=== PATIENT | female | born 1965 | race Caucasian/White ===

== ENCOUNTER → 2017-11-15 14:20 | Outpatient (CLI) | payer OTHER, SELFPAY ==
[2017-11-15 15:51] LABS: Thyroid Stimulating Hormone 0.47 uIU/ml (0.358-3.740)
== END ==
PROVIDERS: Visit Provider Internal Medicine Endocrinology, Diabetes & Metabolism
DX: L85.3 Xerosis cutis (principal); E03.9 Hypothyroidism, unspecified; N95.1 Menopausal and female climacteric states
CPT/HCPCS: 36415; 84443

== ENCOUNTER → 2018-06-27 08:35 | Outpatient (CLI) | payer OTHER, SELFPAY ==
[2018-06-27 10:40] LABS: Anion Gap 12.2 mEq/L (5-15); Blood Urea Nitrogen 17 mg/dL (7-18); Calcium 10.1 mg/dL (8.5-10.1); Carbon Dioxide 33 mmol/L (21.0-32.0); Chloride 97 mmol/L (98-107); Creatinine,Serum 0.95 mg/dL (0.55-1.02); Estimated Glomerular Filt Rate 62 ml/min (>60); GFR (African American) 75 ML/MIN (>60); Glucose 97 mg/dL (74-106); Potassium 3.2 mmoL/L (3.5-5.1); Sodium 139 mmol/L (136-145); Thyroid Stimulating Hormone 0.16 uIU/ml (0.358-3.740)
== END ==
PROVIDERS: PCP Family Medicine; Visit Provider Internal Medicine Endocrinology, Diabetes & Metabolism
DX: L85.3 Xerosis cutis (principal); E03.9 Hypothyroidism, unspecified; N95.1 Menopausal and female climacteric states
CPT/HCPCS: 36415; 80048; 84443

== ENCOUNTER → 2018-09-12 09:49 | Outpatient (CLI) | payer OTHER, SELFPAY ==
--- NOTE | 2018-09-12 09:55 | MM_ITS ---
MM Dig screening mamm BI w/CAD CAD Screening COMPARISON: Digital mammograms with CAD 08/12/2017 and 03/10/2016 INDICATION: There is a history of breast cancer in patient's maternal great grandmother and maternal great aunt TECHNIQUE: Standard CC and MLO images were obtained. R2 CAD reviewed. FINDINGS: The breasts are composed primarily of fat with minimal scattered fibroglandular densities throughout each breast. There there are couple benign-appearing calcifications right breast.. There is no suspicious lesion and there are no suspicious microcalcifications. IMPRESSION: A type breast parenchyma with no suspicious lesion seen BI-RADS Category: 2 Benign Finding(s) RECOMMENDED FOLLOW-UP: 1YR - 1 YEAR FOLLOW-UP (A letter has been sent to the patient regarding results of the study.)
== END ==
PROVIDERS: PCP Family Medicine; Visit Provider Obstetrics & Gynecology
DX: Z12.31 Encounter for screening mammogram for malignant neoplasm of breast (principal)
CPT/HCPCS: 77067

== ENCOUNTER → 2018-10-17 08:14 | Outpatient (CLI) | payer OTHER, SELFPAY ==
--- NOTE | 2018-10-17 | CT_ITS ---
CT angio neck INDICATION: Headache, splenic artery and renal artery aneurysm ITS.REASON: R/O ANEURYSM ORDERING PHYSICIAN: Denys Gupta MD PATIENT AGE: 53 years COMPARISON: None TECHNIQUE: Axial images are obtained following the bolus administration of 25 mL's of Optiray 320 contrast. Sagittal and coronal reformatted images are reviewed as well. All CT scans at the facility use one or more dose reduction, viz: automated exposure control, ma/kV adjustment per patient size (including targeted exams where dose is matched to indication, i.e. head), or iterative reconstruction technique. FINDINGS: The aortic arch has an unremarkable appearance. No anatomic variants are evident of the great vessels. No stenotic lesions or significant plaque is evident. There are patent bilateral vertebral arteries. Common carotids have an unremarkable appearance. Internal carotid arteries are unremarkable without evidence of stenosis, ulceration, or aneurysm. Nonvascular findings: There is evidence of old granulomatous disease with calcified nodes in the mediastinum. IMPRESSION: Negative CT angiogram of the aortic arch and neck
--- NOTE | 2018-10-17 | CT_ITS ---
CT angio head INDICATION: Headache, splenic artery and renal artery aneurysm ORDERING PHYSICIAN: Denys Gupta MD PATIENT AGE: 53 years COMPARISON: None TECHNIQUE: Axial images are obtained with [employer] 320. Sagittal and coronal reformatted images are reviewed as well. All CT scans at the facility use one or more dose reduction, viz: automated exposure control, ma/kV adjustment per patient size (including targeted exams where dose is matched to indication, i.e. head), or iterative reconstruction technique. FINDINGS: No evidence of aneurysm, arteriovenous malformation, or major intracranial occlusive process evident. There is persistent the origin of the right posterior cerebral artery as a normal variant. No midline shift or mass effect. No enhancing cerebral lesions are evident. IMPRESSION: Negative CT angiogram of the brain
--- NOTE | 2018-10-17 08:17 | CA_ITS ---
PROCEDURE: 2-D M-mode and color Doppler study INDICATIONS FOR THE TEST: Chest pain COPD Heart Murmur Tobacco Smoking Palpitations Fatigue Syncope Edema Hypertension Diabetes Mellitus Rheumatic Fever SOB AREVALO Obesity Hyperlipidemia Family History HD Additional History CARDIOMEGALY POOR ACOUSTIC WINDOWS IN PLAX/PSAX PATIENT INFORMATION HEIGHT: 61 WEIGHT:138 GENDER: Female B/P:130/80 2-D/M-MODE INTERPRETATION: 2-D MEASUREMENTS OBSERVED VALUES IN CMS Right Ventricular Dimension (RVDd) 1.5 Interventricular Septum (Thickness)(IVsd) .6 Left Ventricular Internal Dimensions(LVIDd) 4.6 Left Ventricular Posterior Wall (Thickness)(LVPWd) 1.0 Aortic Root 3.8 Aortic Cusp Separation 1.7 Left Atrial Dimensions (LAD) 2.1 2D 1. Left atrium is normal size, left ventricle is normal size, left ventricle wall thickness is upper limit of the normal, there is preserved left ventricular systolic function, visually estimated ejection fraction 55% with no regional wall motion abnormality. 2. The right atrium and right ventricle are normal size and contractility. 3. The aortic valve is minimally thickened and fibrosed. 4. The mitral and tricuspid valvular grossly normal. 5. The pulmonic valve is poorly visualized. 6. No significant pericardial effusion noted. DOPPLER INTERROGATION: Doppler interrogation of the aortic, mitral and tricuspid valvular presence of mild mitral and tricuspid regurgitation, tricuspid regurgitation jet velocity is inadequate for calculation of the right ventricular systolic pressure, grade 1 diastolic dysfunction seen without tissue Doppler evidence of raised left atrial pressure. CONCLUSION: 1. Normal left ventricular size, preserved left ventricular systolic function, visually estimated ejection fraction 55% with no regional wall motion abnormality, grade 1 diastolic dysfunction seen without tissue Doppler evidence of raised left atrial pressure. 2. Mild mitral and tricuspid regurgitation 3. No significant pericardial effusion noted.
== END ==
PROVIDERS: PCP Family Medicine; Visit Provider Internal Medicine
DX: I51.7 Cardiomegaly (principal); R11.10 Vomiting, unspecified; R51 Headache
CPT/HCPCS: 70496; 70498; 93306; Q9967

== ENCOUNTER → 2018-10-18 08:45 | Outpatient (CLI) | payer OTHER, SELFPAY ==
--- NOTE | 2018-10-18 08:50 | US_ITS ---
US gallbladder HISTORY: ITS.REASON: vomiting ORDERING PHYSICIAN: Denys Gupta MD PATIENT AGE: 53 years Comparison: None FINDINGS: PANCREAS: Unremarkable. No obvious mass or abnormal fluid collection. No ductal dilatation LIVER: No focal liver lesions demonstrated. Homogeneous echogenicity. No intrahepatic biliary ductal dilatation evident. There is some increased echogenicity of liver suggesting fatty liver. RIGHT KIDNEY: Unremarkable. Normal size and echogenicity. No hydronephrosis GALLBLADDER: Gallstones are present. No gallbladder wall thickening, pericholecystic fluid, or biliary dilatation. Gallstones measure up to 1.5 cm. Common bile duct is normal at 3 mm. IMPRESSION: 1. Cholelithiasis. 2. Mild hepatic steatosis
== END ==
PROVIDERS: PCP Internal Medicine; Visit Provider Internal Medicine
DX: R11.10 Vomiting, unspecified (principal)
CPT/HCPCS: 76705

== ENCOUNTER → 2018-10-19 15:41 | Outpatient (CLI) | payer OTHER, SELFPAY ==
[2018-10-19 16:04] LABS: Basophils # 0.1 K/mm3 (0-0.2); Basophils % 0.4 % (0.1-2.0); Eosinophils # 0.4 K/mm3 (0.0-0.4); Hematocrit 42.2 % (37.0-47.0); Hemoglobin 14.1 g/dL (12.2-16.2); Lymphocytes # 2.9 K/mm3 (0.7-4.5); Lymphocytes % 23.7 % (10-50); Mean Corpuscular HGB Conc 33.5 g/dL (31.8-35.4); Mean Corpuscular Hemoglobin 28.2 pg (27.0-31.2); Mean Corpuscular Volume 84.1 fl (81-99); Mean Platelet Volume 7.1 fl (7.4-10.4); Monocytes # 0.5 K/mm3 (0.1-1.0); Monocytes % 3.9 % (1.7-9.3); Neutrophils # 8.6 K/mm3 (1.8-7.8); Neutrophils % 69.1 % (37.0-80.0); Platelet Count 525 K/mm3 (142-424); Red Blood Count 5.02 M/mm3 (4.20-5.40); Red Cell Distribution Width 13.3 % (11.5-17.5); White Blood Count 12.4 K/mm3 (4.8-10.8)
[2018-10-19 18:57] LABS: Alanine Aminotransferase 62 U/L (12-78); Albumin Level 4.3 gm/dL (3.4-5.0); Albumin/Globulin Ratio 1.2 (1.1-1.8); Alkaline Phosphatase 112 U/L (46-116); Anion Gap 15.6 mEq/L (5-15); Aspartate Amino Transferase 23 U/L (15-37); Bilirubin,Total 0.3 mg/dL (0.2-1.0); Blood Urea Nitrogen 20 mg/dL (7-18); Calcium 10.1 mg/dL (8.5-10.1); Carbon Dioxide 30 mmol/L (21.0-32.0); Chloride 97 mmol/L (98-107); Creatinine,Serum 1.18 mg/dL (0.55-1.02); Estimated Glomerular Filt Rate 48 ml/min (>60); GFR (African American) 58 ML/MIN (>60); Globulin 3.6 gm/dl (1.3-3.2); Glucose 78 mg/dL (74-106); Potassium 3.6 mmoL/L (3.5-5.1); Sodium 139 mmol/L (136-145); Total Protein,Serum 7.9 gm/dL (6.4-8.2)
== END ==
PROVIDERS: Visit Provider Surgery
DX: K80.20 Calculus of gallbladder without cholecystitis without obstruction (principal)
CPT/HCPCS: 36415; 80053; 85025

== ENCOUNTER → 2019-01-25 08:51 | Outpatient (CLI) | payer OTHER, SELFPAY ==
[2019-01-25 09:06] LABS: Basophils % 0.5 % (0.1-2.0); Eosinophils # 0.2 K/mm3 (0.0-0.4); Eosinophils % 2.6 % (0.1-12.0); Hematocrit 43.7 % (37.0-47.0); Hemoglobin 13.7 g/dL (12.2-16.2); Lymphocytes # 1.8 K/mm3 (0.7-4.5); Lymphocytes % 20.9 % (10-50); Mean Corpuscular HGB Conc 31.4 g/dL (31.8-35.4); Mean Corpuscular Hemoglobin 27.8 pg (27.0-31.2); Mean Corpuscular Volume 88.6 fl (81-99); Mean Platelet Volume 7.4 fl (7.4-10.4); Monocytes # 0.5 K/mm3 (0.1-1.0); Monocytes % 5.1 % (1.7-9.3); Neutrophils # 6.2 K/mm3 (1.8-7.8); Neutrophils % 70.9 % (37.0-80.0); Platelet Count 491 K/mm3 (142-424); Red Blood Count 4.93 M/mm3 (4.20-5.40); Red Cell Distribution Width 13.5 % (11.5-17.5); White Blood Count 8.8 K/mm3 (4.8-10.8)
[2019-01-25 10:25] LABS: Anion Gap 13.9 mEq/L (5-15); Blood Urea Nitrogen 14 mg/dL (7-18); Calcium 9.6 mg/dL (8.5-10.1); Carbon Dioxide 28 mmol/L (21.0-32.0); Chloride 103 mmol/L (98-107); Creatinine,Serum 1.11 mg/dL (0.55-1.02); Estimated Glomerular Filt Rate 52 ml/min (>60); GFR (African American) 63 ML/MIN (>60); Glucose 91 mg/dL (74-106); Potassium 3.9 mmoL/L (3.5-5.1); Sodium 141 mmol/L (136-145); Thyroid Stimulating Hormone 0.53 uIU/ml (0.358-3.740)
[2019-01-27 20:44] LABS: Triiodothyronine (T3) Free 2.7 pg/mL (2.0-4.4)
== END ==
PROVIDERS: Visit Provider Nurse Practitioner Family
DX: E87.6 Hypokalemia (principal); R79.89 Other specified abnormal findings of blood chemistry; E03.9 Hypothyroidism, unspecified
CPT/HCPCS: 36415; 80048; 84439; 84443; 84481; 85025

== ENCOUNTER → 2019-06-05 15:44 | Outpatient (CLI) | payer OTHER, SELFPAY ==
[2019-06-05 19:56] LABS: Alanine Aminotransferase 32 U/L (12-78); Albumin Level 4.5 gm/dL (3.4-5.0); Albumin/Globulin Ratio 1.1 (1.1-1.8); Alkaline Phosphatase 109 U/L (46-116); Anion Gap 15.2 mEq/L (5-15); Aspartate Amino Transferase 32 U/L (15-37); Bilirubin,Total 0.5 mg/dL (0.2-1.0); Blood Urea Nitrogen 19 mg/dL (7-18); Calcium 9.6 mg/dL (8.5-10.1); Carbon Dioxide 28 mmol/L (21.0-32.0); Chloride 97 mmol/L (98-107); Creatinine,Serum 0.87 mg/dL (0.55-1.02); Estimated Glomerular Filt Rate 69 ml/min (>60); GFR (African American) 83 ML/MIN (>60); Globulin 4.2 gm/dl (1.3-3.2); Glucose 85 mg/dL (74-106); Potassium 4.2 mmoL/L (3.5-5.1); Sodium 136 mmol/L (136-145); Thyroid Stimulating Hormone 0.68 uIU/ml (0.358-3.740); Total Protein,Serum 8.7 gm/dL (6.4-8.2)
== END ==
PROVIDERS: Visit Provider Internal Medicine Endocrinology, Diabetes & Metabolism
DX: E87.6 Hypokalemia (principal); L85.3 Xerosis cutis; E03.9 Hypothyroidism, unspecified; N95.1 Menopausal and female climacteric states
CPT/HCPCS: 36415; 80053; 84443

== ENCOUNTER → 2019-06-16 12:31 | Outpatient (CLI) | payer OTHER, SELFPAY ==
--- NOTE | 2019-06-16 12:33 | CT_ITS ---
Procedure: CT ANGIO ABDOMEN CLINICAL HISTORY: raa/ruben Follow-up renal artery and splenic artery aneurysm. COMPARISON: CT ANGIO ABD W WO CONT from 10/13/2018 TECHNIQUE: IV Contrast: 100ml Optiray 350 Axial images obtained with sagittal and coronal reformats. All CT scans at the facility use one or more dose reduction, viz: automated exposure control, ma/kV adjustment per patient size (including targeted exams where dose is matched to indication, i.e. head), or iterative reconstruction technique. FINDINGS: There is a mild degree of respiratory motion artifact which somewhat decreases the fine detail. The abdominal aorta is normal in caliber. No evidence of aortic aneurysm. There is a single right renal artery which has an unremarkable appearance. No evidence of renal artery stenosis or aneurysm on the right. There is a single left renal artery. 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 Small splenic artery aneurysm involving the distal aspect of the splenic artery is once again noted measuring 6 mm unchanged. There is an additional segmental small splenic artery aneurysm at 5 mm unchanged.. No new aneurysms are evident. No areas of stenosis the. IMPRESSION: Overall no significant change in the partially thrombosed left renal artery aneurysm and the too small left splenic artery aneurysm is with no new findings evident. Dictated by: Moises Cruz MD 06/16/2019 15:14 Electronically signed by Moises Cruz MD in [place] 06/16/2019 15:14
== END ==
PROVIDERS: PCP Family Medicine; Visit Provider Internal Medicine
DX: I72.2 Aneurysm of renal artery (principal); I72.8 Aneurysm of other specified arteries
CPT/HCPCS: 74175; Q9967

== ENCOUNTER → 2019-11-07 13:01 | Outpatient (CLI) | payer OTHER, SELFPAY ==
--- NOTE | 2019-11-07 13:03 | MM_ITS ---
PROCEDURE: MM DIG SCREENING MAMM BI W/CAD BILATERAL DIGITAL BREAST TOMOSYNTHESIS INCLUDED Patient Age:54Y CLINICAL INDICATION: SCREENING. No hormones. No new complaints Family history breast cancer: Maternal great grandmother postmenopausal Paternal aunt and maternal great aunt premenopausal,,. COMPARISON: MM MAMMO DIGITAL SCREENING W CAD BILAT from 08/04/2011 [facility] MM Dig screening mamm BI w/CAD from 09/12/2018 TECHNIQUE: MLO and CC view of both breast along with CAD computer review performed. Bilateral digital breast tomosynthesis included FINDINGS: [id number] a density with [id number] residual fibroglandular elements both breast Left breast: Stable with no new areas of concern. Minimal asymmetric fibroglandular elements towards upper-outer quadrant again noted and appear unchanged Right breast.. Small 3 mm minimal asymmetric of nodularity at central breast seen on the CC view & cc tomosynthesis image 33. A likely present on 2018 study but better discerned on today's tomosynthesis. Suggest six-month follow-up mammogram and it persist ultrasound at that time suggested IMPRESSION: Left breast: Stable but follow-up in 1 year. Right breast:. Small just over 3 mm focal most likely benign-appearing nodular density at central breast there likely present 2019, but better defined, more evident with today's tomosynthesis. Suspect off the small cyst, but at this current all juncture would recommend a follow-up right mammogram 5--6 months. If it should persist ultrasound at that time would be suggested. BI-RADS 3 probable benign feature right breast FOLLOW-UP: 6M 6Month Follow-up. Right breast. Dictated by: Seamus Brantley MD 11/13/2019 09:15 Electronically signed by Seamus Brantley MD in [place] 11/13/2019 09:15
== END ==
PROVIDERS: PCP Family Medicine; Visit Provider Obstetrics & Gynecology
DX: Z12.31 Encounter for screening mammogram for malignant neoplasm of breast (principal)
CPT/HCPCS: 77063; 77067

== ENCOUNTER → 2020-04-09 09:30 | Outpatient (CLI) | payer OTHER, SELFPAY | PROVIDERS: PCP Family Medicine; Visit Provider Internal Medicine Adolescent Medicine | DX: Z20.828 Contact with and (suspected) exposure to other viral communicable diseases (principal) | CPT/HCPCS: U0003 ==

== ENCOUNTER → 2020-05-28 15:30 | Outpatient (CLI) | payer OTHER, SELFPAY ==
--- NOTE | 2020-05-28 15:35 | MM_ITS ---
PROCEDURE: MM DIG MAMM DX UNILAT RT CAD Digital Breast Tomosynthesis Included CLINICAL INDICATION: 6 mth f/u rt breast density COMPARISON: MG MM MAMMO DIGITAL SCREENING W CAD BILAT from 08/04/2011 [facility] MM Dig screening mamm BI w/CAD from 09/12/2018 [facility] MM DIG SCREENING MAMM BI W/CAD from 11/07/2019 US US BREAST RT COMPLETE from 05/28/2020 TECHNIQUE: Standard CC and MLO images and 3D Tomosynthesis was obtained. R2 CAD reviewed. FINDINGS: Average fibroglandular tissue. No malignant appearing mass or malignant-appearing microcalcification. There is a persistent small nodular opacity in the central aspect of the right breast which appears benign measuring 3 mm and not significantly changed. No other abnormalities are evident. Nodularity noted in the superior aspect of the right breast as seen on the MLO view felt to represent overlapping vessels on the tomographic images.. Right breast ultrasound: No suspicious nodules. No cyst or solid nodules apparent. IMPRESSION: Benign findings. No evidence of malignancy. Recommend resume screening mammogram bilaterally in October of 2020 BI-RAD Category: 2 Benign Finding(s) FOLLOW-UP: 6M 6Month Follow-up (A letter has been sent to the patient regarding results of the study.) Dictated by: Moises Cruz MD 06/03/2020 09:33 Moises Cruz MD in [place] 06/03/2020 09:33
== END ==
PROVIDERS: PCP Obstetrics & Gynecology; Visit Provider Obstetrics & Gynecology
DX: R92.8 Other abnormal and inconclusive findings on diagnostic imaging of breast (principal)
CPT/HCPCS: 76641; 77061; 77065; G0279

== ENCOUNTER → 2020-09-30 14:19 | Outpatient (CLI) | payer OTHER, SELFPAY ==
[2020-09-30 15:14] LABS: Basophils # 0.1 K/mm3 (0-0.2); Basophils % 0.6 % (0.1-2.0); Eosinophils # 0.1 K/mm3 (0.0-0.4); Eosinophils % 1.1 % (0.1-12.0); Hematocrit 44.3 % (37.0-47.0); Hemoglobin 14.4 g/dL (12.2-16.2); Lymphocytes # 2.4 K/mm3 (0.7-4.5); Lymphocytes % 19.1 % (10-50); Mean Corpuscular HGB Conc 32.4 g/dL (31.8-35.4); Mean Corpuscular Hemoglobin 28.1 pg (27.0-31.2); Mean Corpuscular Volume 86.6 fl (81-99); Mean Platelet Volume 7.5 fl (7.4-10.4); Monocytes # 0.6 K/mm3 (0.1-1.0); Monocytes % 4.4 % (1.7-9.3); Neutrophils # 9.4 K/mm3 (1.8-7.8); Neutrophils % 74.7 % (37.0-80.0); Platelet Count 455 K/mm3 (142-424); Red Blood Count 5.12 M/mm3 (4.20-5.40); Red Cell Distribution Width 13.7 % (11.5-17.5); White Blood Count 12.5 K/mm3 (4.8-10.8)
[2020-09-30 17:48] LABS: Anion Gap 15.9 mEq/L (5-15); Blood Urea Nitrogen 18 mg/dl (7-17); Calcium 10.7 mg/dl (8.4-10.2); Carbon Dioxide 30 mmol/L (22.0-30.0); Chloride 99 mmol/L (98-107); Estimated Glomerular Filt Rate 58 ml/min (>60); GFR (African American) 70 ML/MIN (>60); Glucose 109 mg/dl (74-100); Potassium 3.9 mmoL/L (3.5-5.1); Sodium 141 mmol/L (136-145)
[2020-09-30 18:18] LABS: Thyroid Stimulating Hormone 0.57 uIU/mL (0.465-4.68)
== END ==
PROVIDERS: Visit Provider Internal Medicine
DX: R00.2 Palpitations (principal); I10 Essential (primary) hypertension
CPT/HCPCS: 36415; 80048; 84439; 84443; 85025

== ENCOUNTER → 2020-12-16 15:49 | Outpatient (CLI) | payer OTHER, SELFPAY | PROVIDERS: Visit Provider Internal Medicine | DX: G47.33 Obstructive sleep apnea (adult) (pediatric) (principal) | CPT/HCPCS: 95806 ==

== ENCOUNTER → 2020-12-20 11:17 | Outpatient (CLI) | payer OTHER, SELFPAY ==
--- NOTE | 2020-12-20 11:18 | CT_ITS ---
Procedure: CT ANGIO ABDOMEN CLINICAL HISTORY: renal artery aneurysm and splenic aneurysm Follow up COMPARISON: CT CT ANGIO ABDOMEN from 06/16/2019 TECHNIQUE: IV Contrast: 100ml Isovue 370 Axial images obtained with sagittal and coronal reformats. All CT scans at the facility use one or more dose reduction, viz: automated exposure control, ma/kV adjustment per patient size (including targeted exams where dose is matched to indication, i.e. head), or iterative reconstruction technique. FINDINGS: Vascular findings: No evidence of aortic aneurysm. Iliac arteries have an unremarkable appearance. Partially thrombosed left renal artery aneurysm is noted involving the segmental artery posteriorly. The aneurysm measures approximately 10 mm in with not significantly changed.. The celiac artery, SMA, and HEATHER and the right renal artery has an unremarkable appearance. Splenic artery aneurysm in the hilum of the spleen is once again noted measuring 8 mm not significantly changed. Pertinent non vascular findings: Calcified granuloma in the right lower lobe. Fatty liver. Prior cholecystectomy. IMPRESSION: No change in the splenic artery and left renal artery aneurysms. Dictated by: Moises Cruz MD 12/23/2020 09:15 Moises Cruz MD in [place] 12/23/2020 09:15
== END ==
PROVIDERS: Visit Provider Physician Assistant
DX: I72.2 Aneurysm of renal artery (principal); I72.8 Aneurysm of other specified arteries
CPT/HCPCS: 74175; Q9967

== ENCOUNTER → 2021-01-21 16:07 | Outpatient (CLI) | payer OTHER, SELFPAY ==
[2021-01-21 20:21] LABS: Ferritin 97.2 ng/ml (11.1-264)
== END ==
PROVIDERS: Visit Provider Specialist
DX: G25.81 Restless legs syndrome (principal)
CPT/HCPCS: 36415; 82728

== ENCOUNTER → 2021-07-29 15:38 | Outpatient (CLI) | payer OTHER, SELFPAY ==
--- NOTE | 2021-07-29 15:41 | MM_ITS ---
PROCEDURE INFORMATION: Exam: MG Bilateral Screening 3D Mammography Exam date and time: 07/29/2021 3:41 PM Age: 55 years old Clinical indication: Encounter for screening mammogram for malignant neoplasm of breast TECHNIQUE: Imaging protocol: Bilateral screening tomosynthesis and 2D mammography including computer-aided detection (CAD) when performed. COMPARISON: 1. MG MM DIG MAMM DX UNILAT RT CAD 05/28/2020 3:39 PM 2. MG MM DIG SCREENING MAMM BI W/CAD 11/07/2019 1:04 PM 3. MG [facility] MM Dig screening mamm BI w/CAD 09/12/2018 10:17 AM FINDINGS: MAMMOGRAPHY: Breast composition: There are scattered areas of fibroglandular density. Mass: No suspicious masses. Architectural distortion: No suspicious distortion. Calcifications: No suspicious calcifications. Asymmetric density: None. Skin thickening: None. Axillary adenopathy: None. IMPRESSION: No mammographic evidence of malignancy. Annual screening is recommended unless otherwise clinically indicated. ASSESSMENT: BI-RADS Category 1: Negative
== END ==
PROVIDERS: Visit Provider Obstetrics & Gynecology
DX: Z12.31 Encounter for screening mammogram for malignant neoplasm of breast (principal)
CPT/HCPCS: 77063; 77067

== ENCOUNTER → 2021-10-06 07:53 | Outpatient (CLI) | payer OTHER, SELFPAY ==
--- NOTE | 2021-10-06 07:53 | CT_ITS ---
FINAL REPORT TECHNIQUE: Pre-and postcontrast images of the abdomen were performed by computed tomography. Extensive 3-D reconstruction images were performed. A CTA was performed. This study was performed with techniques to keep radiation doses as low as reasonably achievable (ALARA). Individualized dose reduction techniques using automated exposure control or adjustment of mA and/or kV according to the patient''s size were employed. CLINICAL HISTORY: renal artery aneurysm and splenic aneurysm Follow up previous study done here as well 12/20/20 COMPARISON: 12/20/2020 FINDINGS: ABDOMEN: The lung bases demonstrate several calcified granulomas but are otherwise clear. Precontrast images demonstrate no evidence of nephrolithiasis. No adrenal masses are identified. Liver is fatty infiltrated with focal contrast enhancement of the posterior right hepatic lobe which could represent hemangioma or transient hepatic attenuation difference, unchanged from prior exam. Patient is status post cholecystectomy. CTA: The abdominal aorta is proper caliber. There is aneurysmal of the splenic artery at the hilum which is stable at 8 mm. The SMA, celiac axis, and HEATHER are patent. There is no significant stenosis or calcification. 2 mm left renal artery aneurysm is stable at 10 mm a mostly thrombosed. There is no evidence renal artery stenosis. Visualized iliac arteries are normal. 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 Reviewed, Interpreted and Dictated by Scott Davis III, MD Transcribed by Hyun Miles Authenticated by Scott Davis III, MD on 10/06/2021 11:07:48 AM [facility]
[2021-10-06 14:16] LABS: Basophils # 0.1 K/mm3 (0-0.2); Basophils % 1.1 % (0.1-2.0); Eosinophils # 0.2 K/mm3 (0.0-0.4); Eosinophils % 2.2 % (0.1-12.0); Hematocrit 44.4 % (37.0-47.0); Hemoglobin 14.3 g/dL (12.2-16.2); Lymphocytes # 2.6 K/mm3 (0.7-4.5); Lymphocytes % 24.1 % (10-50); Mean Corpuscular HGB Conc 32.3 g/dL (31.8-35.4); Mean Corpuscular Hemoglobin 27.9 pg (27.0-31.2); Mean Corpuscular Volume 86.4 fl (81-99); Mean Platelet Volume 7.2 fl (7.4-10.4); Monocytes # 0.5 K/mm3 (0.1-1.0); Monocytes % 4.4 % (1.7-9.3); Neutrophils # 7.3 K/mm3 (1.8-7.8); Neutrophils % 68.3 % (37.0-80.0); Platelet Count 464 K/mm3 (142-424); Red Blood Count 5.14 M/mm3 (4.20-5.40); Red Cell Distribution Width 13.2 % (11.5-17.5); White Blood Count 10.6 K/mm3 (4.8-10.8)
[2021-10-06 15:10] LABS: Anion Gap 14.5 mEq/L (5-15); Blood Urea Nitrogen 14 mg/dl (7-17); Calcium 9.4 mg/dl (8.4-10.2); Carbon Dioxide 26 mmol/L (22.0-30.0); Chloride 99 mmol/L (98-107); Estimated Glomerular Filt Rate 58 ml/min (>60); GFR (African American) 70 ML/MIN (>60); Glucose 131 mg/dl (74-100); Potassium 3.5 mmoL/L (3.5-5.1); Sodium 136 mmol/L (136-145)
[2021-10-06 15:25] LABS: Troponin I < 0.01 ng/ml (0.00-0.034)
== END ==
PROVIDERS: Physician Assistant; PCP Internal Medicine; Visit Provider Internal Medicine
DX: R07.9 Chest pain, unspecified (principal); I72.2 Aneurysm of renal artery; I72.8 Aneurysm of other specified arteries; I10 Essential (primary) hypertension
CPT/HCPCS: 36415; 74175; 80048; 84484; 85025; Q9967

== ENCOUNTER → 2021-10-06 13:33 | Outpatient (CLI) | payer OTHER, SELFPAY | PROVIDERS: PCP Physician Assistant; Visit Provider Physician Assistant | DX: R07.9 Chest pain, unspecified (principal) ==